=== PATIENT | female | born 1950 | race African-American/Black ===

== ENCOUNTER 2019-10-10 21:11 | Inpatient (IN) | payer OTHER ==
[~2019-10-10] VITALS: Ht 162.6 cm; Wt 96.3 kg
[2019-10-10] MEDS ORDERED: ETOMIDATE 2MG/ML 10ML VIAL IV ONE (21:45)
[2019-10-10] MEDS ORDERED: SUCCINYLCHOLINE CHLORIDE 200MG/10ML IV ONE (21:45)
[2019-10-10 22:26] LABS: HEMATOCRIT. 45.4 % (36.0-48.0); HEMOGLOBIN. 14.7 g/dL (12.0-16.0); MEAN CORPUSCULAR HEMOGLOBIN 27.8 pg (28.0-32.0); MEAN CORPUSCULAR VOLUME 86.2 fL (81.0-99.0); MEAN PLATELET VOLUME 8.2 fl (7.4-10.4); PLATELET 319 x1000/uL (130-400); RED BLOOD CELL COUNT 5.27 mill/uL (4.2-5.4)
[2019-10-10 22:42] LABS: CHLORIDE 103 mEq/L (98-107)
[2019-10-10 22:47] LABS: PLATELET ESTIMATE NORMAL
[2019-10-10 22:49] LABS: ETHANOL BLOOD < 10 mg/dL
[2019-10-10 22:54] LABS: CREATINE KINASE 79 IU/L (26-192)
[2019-10-10] MEDS ORDERED: VANCOMYCIN 1 G PREMIX 200 ML IV SCH (23:00)
[2019-10-10] MEDS ORDERED: PIPERACILLIN/TAZ 3.375G PREMIX 50 ML IV ONE (23:00)
[2019-10-10 23:31] LABS: CLARITY URINE CLEAR (CLEAR); COLOR URINE YELLOW (YELLOW); KETONES URINE 2+ (NEGATIVE); LEUKOCYTE ESTERASE URINE NEGATIVE (NEGATIVE); NITRITE URINE NEGATIVE (NEGATIVE); OCCULT BLOOD URINE NEGATIVE (NEGATIVE); PH URINE 5.5 (4.5-8.0); PROTEIN URINE NEGATIVE (NEGATIVE); SPECIFIC GRAVITY URINE 1.026 (1.005-1.030); UROBILINOGEN URINE 0.2 E.U./dL (0.2-1.0)
[2019-10-10 23:57] LABS: *AMPHETAMINES SCREEN URINE NEGATIVE (NEGATIVE); *BARBITURATES SCREEN URINE NEGATIVE (NEGATIVE); *COCAINE SCREEN URINE NEGATIVE (NEGATIVE); METHADONE URINE SCREEN NEGATIVE (NEGATIVE); OPIATES URINE SCREEN NEGATIVE (NEGATIVE); PHENCYCLIDINE URINE SCREEN NEGATIVE (NEGATIVE)
[2019-10-10 23:58] LABS: CANNABINOID URINE SCREEN NEGATIVE (NEGATIVE)
[2019-10-11] VITALS (87 sets, daily range): BP systolic 61–165; BP diastolic 23–117
[2019-10-11] LABS: *BENZODIAZEPINES SCREEN URINE NEGATIVE (NEGATIVE)
[2019-10-11] MEDS ORDERED: SODIUM CHLORIDE 0.9% 1,000 ML IV ONE (00:30)
[2019-10-11] MEDS ORDERED: FENTANYL CITRATE/PF 500 MCG in SODIUM CHLORIDE 0.9% 40 ML IV STA (00:35)
[2019-10-11] MEDS ORDERED: MIDAZOLAM HCL 50 MG in DEXTROSE 5% WATER 40 ML IV ONE (00:45)
[2019-10-11] MEDS ORDERED: MIDAZOLAM HCL 50 MG in DEXTROSE 5% WATER 40 ML IV SCH (01:00)
[2019-10-11] MEDS ORDERED: FENTANYL CITRATE/PF 500 MCG in SODIUM CHLORIDE 0.9% 40 ML IV SCH (01:00)
[2019-10-11] MEDS ORDERED: ACETAMINOPHEN 325MG TABLET PO PRN (04:30)
[2019-10-11] MEDS ORDERED: ONDANSETRON HCL 4MG/2ML INJ IV PRN (04:30)
[2019-10-11] MEDS ORDERED: PROPOFOL 10MG/ML 100ML 100 ML IV PRN (04:45)
[2019-10-11] MEDS ORDERED: SODIUM BICARBONATE 8.4% 1 MEQ/ML 50ML SYR IV SCH (04:45)
[2019-10-11] MEDS ORDERED: NOREPINEPHRINE 8 MG in DEXT 5% WATER 242 ML IV PRN (05:00)
[2019-10-11] MEDS: DEXT 5%/0.45% NACL 1000ML 1,000 ML IV SCH ×3 (05:18→20:18)
[2019-10-11] MEDS: PANTOPRAZOLE SODIUM 40 MG/VIAL IV SCH ×2 (05:18→10:02)
[2019-10-11] MEDS: METRONIDAZOLE 500 MG PREMIX 100 ML IV SCH ×3 (05:20→20:16)
[2019-10-11 05:26] LABS: BG BASE EXCESS -6.9 mmol/L (-2.0-2.0); BG CARBOXYHEMOGLOBIN 0.3 % (0.5-1.5); BG DEOXYHEMOGLOBIN 0.5 % (0.0-5.0); BG FRACTION INSPIRED OXYGEN 100; BG HCO3 ACT 19.2 mmol/L (22.0-26.0); BG METHEMOGLOBIN 0.4 % (0.0-1.5); BG OXYGEN SATURATION 99.5 % (92.0-98.5); BG OXYHEMOGLOBIN 98.8 % (94.0-97.0); BG PCO2 40.9 mmHg (35.0-45.0); BG PO2 311.6 mmHg (75.0-100.0); BG SAMPLE SITE RIGHT RADIAL; BG TIDAL VOLUME(mL) 500 mL; BG TOTAL HEMOGLOBIN 13.8 g/dL (12.0-18.0); BG VENT MODE VENT - A/C; BG VENT RATE 14 set
[2019-10-11] MEDS ORDERED: LEVOFLOXACIN 500MG PREMIX 100 ML IV SCH (06:00)
[2019-10-11] MEDS ORDERED: LOSA1TAB34 PO (08:27)
[2019-10-11] MEDS ORDERED: LOSA-20 PO (08:27)
[2019-10-11] MEDS ORDERED: BENZ1TAB7 PO (08:27)
[2019-10-11] MEDS ORDERED: GLIP10TA10 PO (08:27)
[2019-10-11] MEDS ORDERED: METF-416 PO (08:27)
[2019-10-11] MEDS ORDERED: LAMO25TA71 PO (08:27)
[2019-10-11] MEDS ORDERED: ATOR40TA70 PO (08:27)
[2019-10-11] MEDS ORDERED: ENOXAPARIN 40MG/0.4ML SYR SUBCUT SCH (09:00)
[2019-10-11] MEDS ORDERED: DEXTROSE 50% WATER 50ML SYRINGE IV PRN (09:00)
[2019-10-11 09:04] LABS: BG BASE EXCESS -3.5 mmol/L (-2.0-2.0); BG CARBOXYHEMOGLOBIN 0.3 % (0.5-1.5); BG DEOXYHEMOGLOBIN 5.6 % (0.0-5.0); BG FRACTION INSPIRED OXYGEN 40; BG HCO3 ACT 20.8 mmol/L (22.0-26.0); BG OXYGEN SATURATION 94.4 % (92.0-98.5); BG OXYHEMOGLOBIN 94.1 % (94.0-97.0); BG PCO2 35.1 mmHg (35.0-45.0); BG PH 7.391 (7.350-7.450); BG SAMPLE SITE LEFT RADIAL; BG TIDAL VOLUME(mL) 500 mL; BG TOTAL HEMOGLOBIN 12.5 g/dL (12.0-18.0); BG VENT MODE VENT - A/C; BG VENT RATE 20 set
[2019-10-11] MEDS: ENOXAPARIN 30MG/0.3ML SYR SUBCUT SCH ×2 (10:02→20:16)
[2019-10-11] MEDS: BLOOD SUGAR DIAGNOSTIC STRIP TEST SCH ×3 (11:25→20:15)
[2019-10-11] MEDS: INSULIN LISPRO 100 UNITS/ML SUBCUT SCH ×3 (11:32→20:16)
[2019-10-11] MEDS ORDERED: IPRATROPIUM/ALBUTEROL 0.5-3(2.5)MG/3ML NEB HHN PRN (13:30)
[2019-10-11 13:46] LABS: BETA HYDROXYBUTYRATE 0.4 mMol/L (0.0-0.3)
[2019-10-11] MEDS: IPRATROPIUM/ALBUTEROL 0.5-3(2.5)MG/3ML NEB HHN SCH ×2 (15:53→20:40)
[2019-10-11] MEDS: CEFEPIME 1,000 MG in DEXTROSE 5% WATER 50 ML IV SCH (15:59)
[2019-10-11 16:01] LABS: BASOPHILS % 0.1 % (0.0-2.0); HEMATOCRIT. 34.2 % (36.0-48.0); HEMOGLOBIN. 11.1 g/dL (12.0-16.0); MEAN CORPUSCULAR HEMOGLOBIN 27.3 pg (28.0-32.0); MEAN CORPUSCULAR VOLUME 84.1 fL (81.0-99.0); MEAN PLATELET VOLUME 7.8 fl (7.4-10.4); MONOCYTES % 5.3 % (2.0-8.0); NEUTROPHILS % 84.6 % (40.0-76.0); PLATELET 240 x1000/uL (130-400); RED BLOOD CELL COUNT 4.06 mill/uL (4.2-5.4); RED CELL DISTRIBUTION WIDTH 13.9 % (11.6-14.6)
[2019-10-11] MEDS: PROPOFOL 10MG/ML 100ML 100 ML IV PRN ×2 (16:01→22:07)
[2019-10-12] VITALS (93 sets, daily range): BP systolic 93–160; BP diastolic 40–100
[2019-10-12] MEDS: IPRATROPIUM/ALBUTEROL 0.5-3(2.5)MG/3ML NEB HHN SCH ×7 (00:25→23:59)
[2019-10-12] MEDS: PROPOFOL 10MG/ML 100ML 100 ML IV PRN ×6 (01:49→20:09)
[2019-10-12] MEDS: CEFEPIME 1,000 MG in DEXTROSE 5% WATER 50 ML IV SCH ×2 (03:05→15:25)
[2019-10-12] MEDS: METRONIDAZOLE 500 MG PREMIX 100 ML IV SCH ×3 (04:02→21:48)
[2019-10-12 05:36] LABS: BASOPHILS % 0.1 % (0.0-2.0); HEMATOCRIT. 33.7 % (36.0-48.0); HEMOGLOBIN. 10.9 g/dL (12.0-16.0); LYMPHOCYTES % 14.7 % (20.0-50.0); MEAN CORPUSCULAR HEMOGLOBIN 27.4 pg (28.0-32.0); MEAN CORPUSCULAR VOLUME 84.9 fL (81.0-99.0); MEAN PLATELET VOLUME 8.1 fl (7.4-10.4); MONOCYTES % 5.5 % (2.0-8.0); NEUTROPHILS % 79.7 % (40.0-76.0); PLATELET 206 x1000/uL (130-400); RED BLOOD CELL COUNT 3.97 mill/uL (4.2-5.4); RED CELL DISTRIBUTION WIDTH 14.1 % (11.6-14.6)
[2019-10-12] MEDS ORDERED: LEVOFLOXACIN 250MG PREMIX 50 ML IV SCH (06:00)
[2019-10-12 06:03] LABS: CHLORIDE 106 mEq/L (98-107)
[2019-10-12] MEDS: BLOOD SUGAR DIAGNOSTIC STRIP TEST SCH ×4 (06:09→21:37)
[2019-10-12] MEDS: INSULIN LISPRO 100 UNITS/ML SUBCUT SCH ×4 (06:10→21:48)
[2019-10-12] MEDS: FENTANYL CITRATE/PF 500 MCG in SODIUM CHLORIDE 0.9% 40 ML IV PRN ×2 (08:30→15:54)
[2019-10-12] MEDS: PANTOPRAZOLE SODIUM 40 MG/VIAL IV SCH (08:42)
[2019-10-12] MEDS: ENOXAPARIN 30MG/0.3ML SYR SUBCUT SCH ×2 (08:43→21:48)
[2019-10-12 09:52] LABS: BG BASE EXCESS -0.9 mmol/L (-2.0-2.0); BG CARBOXYHEMOGLOBIN 0.3 % (0.5-1.5); BG DEOXYHEMOGLOBIN 2.9 % (0.0-5.0); BG FRACTION INSPIRED OXYGEN 40; BG HCO3 ACT 23.3 mmol/L (22.0-26.0); BG METHEMOGLOBIN 0.5 % (0.0-1.5); BG OXYGEN SATURATION 97.1 % (92.0-98.5); BG OXYHEMOGLOBIN 96.3 % (94.0-97.0); BG PCO2 36.5 mmHg (35.0-45.0); BG PH 7.422 (7.350-7.450); BG PO2 91.7 mmHg (75.0-100.0); BG SAMPLE SITE RIGHT RADIAL; BG TIDAL VOLUME(mL) 500 mL; BG TOTAL HEMOGLOBIN 11.4 g/dL (12.0-18.0); BG VENT MODE VENT - A/C; BG VENT RATE 20 set
[2019-10-12] MEDS ORDERED: POTASSIUM CHLORIDE INJ 40 MEQ in DEXT 5% WATER 250 ML IV NR (13:00)
[2019-10-12] MEDS ORDERED: LORAZEPAM 2MG/ML CPJ IV PRN (13:15)
[2019-10-12] MEDS: DEXT 5%/0.45% NACL 1000ML 1,000 ML IV SCH (13:23)
[2019-10-12] MEDS ORDERED: INSULIN GLARGINE UD 100 UNITS/ML SYR SUBCUT NR (14:30)
[2019-10-13] VITALS (82 sets, daily range): BP systolic 100–205; BP diastolic 28–137
[2019-10-13] MEDS: PROPOFOL 10MG/ML 100ML 100 ML IV PRN ×4 (00:02→10:19)
[2019-10-13] MEDS: FENTANYL CITRATE/PF 500 MCG in SODIUM CHLORIDE 0.9% 40 ML IV PRN ×3 (00:06→14:35)
[2019-10-13] MEDS: DEXT 5%/0.45% NACL 1000ML 1,000 ML IV SCH (03:49)
[2019-10-13] MEDS: IPRATROPIUM/ALBUTEROL 0.5-3(2.5)MG/3ML NEB HHN SCH ×4 (03:54→16:23)
[2019-10-13] MEDS: CEFEPIME 1,000 MG in DEXTROSE 5% WATER 50 ML IV SCH ×2 (04:00→16:55)
[2019-10-13] MEDS: METRONIDAZOLE 500 MG PREMIX 100 ML IV SCH ×2 (04:44→12:23)
[2019-10-13 05:30] LABS: BASOPHILS % 0.3 % (0.0-2.0); HEMATOCRIT. 31.5 % (36.0-48.0); HEMOGLOBIN. 10.3 g/dL (12.0-16.0); LYMPHOCYTES % 18.5 % (20.0-50.0); MEAN CORPUSCULAR HEMOGLOBIN 27.5 pg (28.0-32.0); MEAN CORPUSCULAR VOLUME 84.1 fL (81.0-99.0); MEAN PLATELET VOLUME 8.2 fl (7.4-10.4); MONOCYTES % 4.4 % (2.0-8.0); NEUTROPHILS % 75.8 % (40.0-76.0); PLATELET 181 x1000/uL (130-400); RED BLOOD CELL COUNT 3.75 mill/uL (4.2-5.4); RED CELL DISTRIBUTION WIDTH 14.3 % (11.6-14.6)
[2019-10-13 05:40] LABS: CHLORIDE 108 mEq/L (98-107)
[2019-10-13] MEDS: BLOOD SUGAR DIAGNOSTIC STRIP TEST SCH ×3 (05:50→16:55)
[2019-10-13] MEDS: INSULIN LISPRO 100 UNITS/ML SUBCUT SCH ×3 (06:17→17:38)
[2019-10-13] MEDS ORDERED: INSULIN GLARGINE UD 100 UNITS/ML SYR SUBCUT SCH (10:00)
[2019-10-13] MEDS: ENOXAPARIN 30MG/0.3ML SYR SUBCUT SCH (10:17)
[2019-10-13] MEDS: PANTOPRAZOLE SODIUM 40 MG/VIAL IV SCH (10:17)
[2019-10-13 10:41] LABS: BG BASE EXCESS 0.2 mmol/L (-2.0-2.0); BG CARBOXYHEMOGLOBIN 0.3 % (0.5-1.5); BG DEOXYHEMOGLOBIN 1.5 % (0.0-5.0); BG FRACTION INSPIRED OXYGEN 40; BG HCO3 ACT 24.2 mmol/L (22.0-26.0); BG METHEMOGLOBIN 0.3 % (0.0-1.5); BG OXYGEN SATURATION 98.5 % (92.0-98.5); BG OXYHEMOGLOBIN 97.9 % (94.0-97.0); BG PCO2 36.5 mmHg (35.0-45.0); BG PH 7.439 (7.350-7.450); BG PO2 138.3 mmHg (75.0-100.0); BG SAMPLE SITE LEFT RADIAL; BG TIDAL VOLUME(mL) 500 mL; BG TOTAL HEMOGLOBIN 10.6 g/dL (12.0-18.0); BG VENT MODE VENT - A/C; BG VENT RATE 20 set
[2019-10-13] MEDS ORDERED: PROPOFOL 10MG/ML 100ML 100 ML IV PRN (13:45)
== END 2019-10-13 21:25 | disposition short-term general hospital (02) | DRG 871 ==
LOC: ER 21:11 → MICUNO 10-11 00:45 → EDBEDREQ 10-11 00:47 → EDBEDREQDT 10-11 00:47 → EDBEDREQTM 10-11 00:47 → ENRESERV 10-11 02:59
PROVIDERS: ADMIT Hospitalist; ATTEND Hospitalist
PROC: 0BH17EZ Insertion of Endotracheal Airway into Trachea, Via Natural or Artificial Opening (ICD-10-PCS; principal; 2019-10-10)
PROC: 5A1945Z Respiratory Ventilation, 24-96 Consecutive Hours (ICD-10-PCS; 2019-10-10)
PROC: 02HV33Z Insertion of Infusion Device into Superior Vena Cava, Percutaneous Approach (ICD-10-PCS; 2019-10-11)
PROC: B548ZZA Ultrasonography of Superior Vena Cava, Guidance (ICD-10-PCS; 2019-10-11)
DX: A41.9 Sepsis, unspecified organism (principal); J69.0 Pneumonitis due to inhalation of food and vomit; J96.01 Acute respiratory failure with hypoxia; R65.21 Severe sepsis with septic shock; E87.2 Acidosis; G93.40 Encephalopathy, unspecified; E11.65 Type 2 diabetes mellitus with hyperglycemia; E78.00 Pure hypercholesterolemia, unspecified; E78.5 Hyperlipidemia, unspecified; E87.6 Hypokalemia; I10 Essential (primary) hypertension
CPT/HCPCS: 31500; 36415; 36600; 71045; 76937; 80048; 80305; 80307; 80320; 80329; 81003; 82010; 82140; 82375; 82550; 82805; 82962; 83605; 83735; 83880; 84132; 84145; 84443; 84478; 84484; 87070; 87804; 93005; 93306; 93970; 94002; 94003; 94640; 99291; C1725; C9113; J0692; J1650; J1815; J1956; J2250; J2543; J2704; J3010; J3370; J3480; J3490; J7030; J7060; J7620; G0480